=== PATIENT | female | born 1965 | race Caucasian/White ===

== ENCOUNTER → 2016-06-19 | Outpatient (CLI) | payer OTHER ==
[~2016-06-19] VITALS: Ht 162.6 cm; Wt 85.4 kg
[~2016-06-19] MED LIST: CELEXA20 MG PO; HYDROCODONE-AP1 EAC6 PO; LEXAPRO20 MG PO; LYRICA 75 MG CA75 MG PO; NAPROSYN500 MG PO; NEURONTIN 300300 M1 PO; NORCO 5-325 TA1 EACH PO; ONDANSETRON HCL4 M2 PO; PROTONIX 20 MG20 M1 PO; TRAMADOL 50 MG50 MG PO; TRAZODONE HCL50 MG PO; VITAMIN D1000 UNI1 PO; XANAX 0.5 MG0.5 MG PO; ZOFRAN ODT4 MG PO
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
[2016-06-19 12:25] VITALS: BP 105/75
== END | disposition home or self-care (01) ==
LOC: PAIN 07:39
DX: M50.122 Cervical disc disorder at C5-C6 level with radiculopathy (principal); G89.29 Other chronic pain; F51.04 Psychophysiologic insomnia; F41.9 Anxiety disorder, unspecified; F32.9 Major depressive disorder, single episode, unspecified; K21.9 Gastro-esophageal reflux disease without esophagitis; Z90.710 Acquired absence of both cervix and uterus; Z98.49 Cataract extraction status, unspecified eye; Z96.1 Presence of intraocular lens

== ENCOUNTER → 2016-07-03 | Outpatient (CLI) | payer OTHER ==
[~2016-07-03] VITALS: Ht 162.6 cm; Wt 83.5 kg
[~2016-07-03] MED LIST changes: +REXULTI2 MG PO
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
[2016-07-03 08:12] VITALS: BP 116/77
== END ==
LOC: PAIN 07:02
DX: M47.22 Other spondylosis with radiculopathy, cervical region (principal); G89.29 Other chronic pain

== ENCOUNTER → 2016-07-20 | Outpatient (CLI) | payer OTHER, SELFPAY | LOC: MRI 08:56 | DX: M48.02 Spinal stenosis, cervical region (principal) ==

== ENCOUNTER 2017-03-16 08:09 | Emergency (ER) | payer OTHER ==
[~2017-03-16] VITALS: Ht 162.6 cm; Wt 76.2 kg
--- NOTE | ~2017-03-16 | EKG ---
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
[2017-03-16 08:44] LABS: ABSOLUTE NEUTROPHILS 2.9 thou/uL (1.4-8.2); BASOPHILS 0.8 % (0.0-2.0); EOSINOPHILS 1.6 % (0.0-3.0); HEMATOCRIT 33.8 % (37.0-47.0); HEMOGLOBIN 11.3 gm/dL (12.0-15.0); LYMPHOCYTES 35.2 % (24.0-44.0); MCH 29.3 pg (26.0-34.0); MCHC 33.4 g/dL (28.0-37.0); MCV 87.5 fL (80.0-100.0); MONOCYTES 6.7 % (1.0-8.0); PLATELET COUNT 263 thou/uL (150-400); POLYS 55.7 % (36.0-66.0); RBC 3.86 mil/uL (4.20-5.00); WBC 5.3 thou/uL (4.0-11.0)
[2017-03-16 08:52] LABS: ANION GAP 9 mmol/L (7-16); BUN 16 mg/dL (7-18); CALCIUM 9.1 mg/dL (8.5-10.1); CHLORIDE 106 mmol/L (98-107); CO2 28 mmol/L (21-32); CREATININE 1.2 mg/dL (0.6-1.0); GLUCOSE 155 mg/dL (74-106); POTASSIUM 3.7 mmol/L (3.5-5.1); SODIUM 143 mmol/L (136-145)
[2017-03-16 09:01] LABS: TROPONIN-I < 0.04 ng/mL (<0.06)
[2017-03-16 10:34] VITALS: BP 100/64
[2017-07-11] MEDS ORDERED: PREDNISONE 20 M20 MG PO (08:15)
[2017-07-11] MEDS ORDERED: FLEXERIL PO (08:15)
[2017-07-11] MEDS ORDERED: NORCO 5-325 TA1 EACH PO (08:15)
== END 2017-03-16 10:35 | disposition home or self-care (01) ==
LOC: ER 08:09
PROVIDERS: Emergency Medicine
DX: I95.1 Orthostatic hypotension (principal); R55 Syncope and collapse; C53.9 Malignant neoplasm of cervix uteri, unspecified; Z87.891 Personal history of nicotine dependence; Z88.2 Allergy status to sulfonamides; Z90.710 Acquired absence of both cervix and uterus

== ENCOUNTER → 2017-12-13 | Outpatient (CLI) | payer OTHER, SELFPAY ==
[~2017-12-13] MED LIST changes: +FLEXERIL PO; +PREDNISONE 20 M20 MG PO
== END ==
LOC: RAD 09:21
DX: Z12.31 Encounter for screening mammogram for malignant neoplasm of breast (principal)

== ENCOUNTER → 2018-12-12 | Outpatient (CLI) | payer OTHER | LOC: RAD 11:32 | DX: Z12.31 Encounter for screening mammogram for malignant neoplasm of breast (principal) ==